=== PATIENT | female | born 1990 | race Caucasian/White ===

== ENCOUNTER 2018-06-26 03:15 | Observation (INO) ==
[2018-06-26 03:52] LABS: Bilirubin,Urine Negative (Negative); Blood,Urine Negative (Negative); Clarity,Urine Clear (Clear); Color,Urine Yellow (Yellow); Glucose,Urine (UA) Normal (Normal); Ketones,Urine Negative (Negative); Leukocyte Esterase,Urine Negative (Negative); Nitrite,Urine Negative (Negative); Protein,Urine Negative (Neg-Trace); Specific Gravity,Urine 1.009 (1.010-1.025); Urobilinogen,Urine Normal (Normal)
[2018-06-26 04:02] LABS: Amphetamine Screen,Urine Negative ng/mL (Cutoff=1000); Barbiturate Screen,Urine Negative ng/mL (Cutoff=200); Benzodiazepines Screen,Urine Negative ng/mL (Cutoff=200); Cannabinoid Screen,Urine Negative ng/mL (Cutoff = 50); Cocaine Screen,Urine Negative ng/mL (Cutoff= 300); Opiate Screen,Urine Negative ng/mL (Cutoff=300); Phencyclidine Screen,Urine Negative ng/mL (Cutoff=25)
[2018-06-26] MEDS ORDERED: Terconazole Vag SUPP 80 MG SUPP.VAG VG SCH (07:45)
--- NOTE | 2018-06-26 08:16 | OB/GYN Progress Note ---
Date of Encounter: 06/26/18 Time of Encounter: 07:00 - Assessment and Plan (1) 36 weeks gestation of Current Visit: Yes Status: Acute NST reactive Rx for terazo given to patient; first dose prior to discharge Discussed hypogylcemia prevention and what to do if it occurs again; patient states understanding Discharge home with labor precautions Follow up in office as scheduled and PRN (2) Vaginal yeast infection Current Visit: Yes Status: Acute (3) Uterine contractions during Current Visit: Yes Status: Acute (4) Hypoglycemia Current Visit: Yes Status: Acute (5) NST (non-stress test) reactive Current Visit: Yes Status: Acute Subjective - Subjective Principal diagnosis: hypoglycemia Interval history: Ms Stafford is a at 36 weeks and 2 days that presents to triage via ambulance for weakness and brain fog when not in prone position. She states positive movement and contractions that have worsened since her arrival. She was told her blood sugar in the ambulance was low and was given some PO glucose. She states that did help her and her symptoms resolved after eating the glucose. She denies headache, visual disturbances, epigastric pain, leaking of fluid, vaginal discharge, and vaginal bleeding. She is seen by Dr Sinclair for her p renatal care. Antepartum ROS: movement normal, contractions Objective - Exam FHR: auscultation normal, category 1 Auscultation: bilateral: normal Abdomen: Present: normal appearance, soft, gravid. Absent: tenderness Uterus: Present: normal. Absent: firm, tenderness Cervical dilation: 1-2 Cervix effacement: 50 station: -2 Comments: SVE - yeast discharge noted on glove. - Labs Labs: Abnormal lab results POC Glucose 102 mg/dL (70-99) H 06/26/18 04:19 Ur Specific [place] 1.009 (1.010-1.025) L 06/26/18 03:35
== END 2018-06-26 08:40 | disposition home or self-care (01) ==
LOC: 1NENULAB
PROVIDERS: ADMIT Advanced Practice Midwife; ATTEND Advanced Practice Midwife

== ENCOUNTER 2018-06-29 05:13 | Inpatient (IN) ==
[2018-06-28 23:11] LABS: Bilirubin,Urine Small (Negative); Blood,Urine Negative (Negative); Clarity,Urine Clear (Clear); Color,Urine Yellow (Yellow); Glucose,Urine (UA) Normal (Normal); Ketones,Urine 15 mg/dL (Negative); Leukocyte Esterase,Urine Small (Negative); Nitrite,Urine Negative (Negative); PH,Urine 6.5 pH Units (5.0-8.0); Protein,Urine Trace mg/dL (Neg-Trace); Specific Gravity,Urine 1.019 (1.010-1.025); Urobilinogen,Urine Normal (Normal)
[2018-06-28 23:12] LABS: Bacteria,Urine Moderate per hpf (None-Few); Hyaline Casts,Urine None Seen per lpf (None-Few); RBC,Urine 0-3 per hpf (0-3); Squamous Epithelial Cell,Urine Many per lpf (None-Few)
[2018-06-28 23:13] LABS: Basophils % 0.2 %; Lymphocytes % 4.1 %; Monocytes % 4.4 %; Platelet Count 271 K/mcL (140-400)
[2018-06-28 23:15] LABS: Basophils # 0.1 K/mcL (0.0-0.2); Hemoglobin 13.9 g/dL (11.5-15.4); Immature Granulocytes % 0.4 % (0-4); Mean Corpuscular HGB Conc 34.8 g/dL (31.6-35.5); Mean Corpuscular Hemoglobin 31.7 pg (28.0-33.3); Mean Corpuscular Volume 91.1 fL (83.0-100.0); Mean Platelet Volume 10.2 fL (9.4-12.4); Monocytes # 1.1 K/mcL (0.0-1.3); Neutrophils # 22.7 K/mcL (1.6-8.9); Red Blood Count 4.39 M/mcL (3.82-4.97); Red Cell Distribution Width 13.1 % (11.5-14.5); Segmented Neutrophils % 90.9 %
[2018-06-28 23:21] LABS: Amphetamine Screen,Urine Negative ng/mL (Cutoff=1000); Barbiturate Screen,Urine Negative ng/mL (Cutoff=200); Benzodiazepines Screen,Urine Negative ng/mL (Cutoff=200); Cannabinoid Screen,Urine Negative ng/mL (Cutoff = 50); Cocaine Screen,Urine Negative ng/mL (Cutoff= 300); Opiate Screen,Urine Negative ng/mL (Cutoff=300); Phencyclidine Screen,Urine Negative ng/mL (Cutoff=25)
[2018-06-28 23:31] LABS: Albumin 3.8 g/dL (3.5-5.7); Albumin/Globulin Ratio 1.2 (1.1-2.2); Bilirubin,Direct 0.2 mg/dL (0.0-0.2); Bilirubin,Indirect 0.5 mg/dL (0.0-1.2); Bilirubin,Total 0.7 mg/dL (0.3-1.0); Globulin 3.1 g/dL (2.4-3.5); Total Protein 6.9 g/dL (6.4-8.9)
[2018-06-28 23:32] LABS: Amylase 46 Units/L (29-103); Glucose 91 mg/dL (70-105); Lipase 9 Units/L (11-82)
[2018-06-28 23:36] LABS: Platelet Estimate Normal (Normal)
--- NOTE | 2018-06-29 01:10 | OB/GYN Progress Note ---
Date of Encounter: 06/29/18 Time of Encounter: 01:07 - Assessment and Plan (1) Nausea and vomiting during Current Visit: Yes Status: Acute The fluid bolus given along with IV Zofran. Patient reports relief of nausea and vomiting after medications. (2) 36 weeks gestation of Current Visit: No Status: Acute Admitted to observation for complaints of abdominal pain. Continue monitoring for labor evaluation. (3) NST (non-stress test) reactive Current Visit: No Status: Acute FHR 150 bpm, periods of moderate variability, +15 x 15 accelerations, no decelerations Extended periods of minimal variability. (4) Uterine contractions during Current Visit: No Status: Acute Contractions every 2-3 minutes Continue to monitor for labor (5) Leukocytosis Current Visit: No Status: Resolved Suspect white count is due to labor. Will continue to monitor temperature and signs of infection. Patient is afebrile upon admission to unit. Qualifiers: Leukocytosis type: unspecified Qualified Code(s): D72.829 - Elevated white blood cell count, unspecified Subjective - Subjective Principal diagnosis: Abdominal pain, nausea/vomiting/diarrhea Interval history: Patient reports this evening with complaint of severe abdominal pain that started around 1500 today, constant in nature and started approximately one hour after eating. Patient reports this pain is directly above the umbilicus and radiates to the right side of her abdomen. Slightly tender to palpation. Patient also does feel that she is having contractions but has also had nausea, vomiting and diarrhea today. She reports less movement but feels the baby is "balling up." She denies bleeding and fluid leakage. She is tearful upon arrival. She is 36w4d and a and receives care with Dr. Sinclair. Her SVE on 06/26/18 was 1-2 cm and on arrival today she was 3-4 cm and has progressed to 4-5 cm. CBC, LFT, Amylase and lipase all returned normal with the exception of WBC which was found to be 25. She is afebrile on arrival to L&D today. Antepartum ROS: movement normal, contractions, no loss of fluid, no vaginal bleeding Objective - Exam FHR: category 1 FHR comments: FHR 150 bpm, moderate variability with extended periods of minimal variability, +15x15 accels, no decels. Dr. Tavera made aware of periods of minimal variability and patient gestational age and current SVE. Auscultation: bilateral: normal Abdomen: Present: normal appearance, soft, gravid, tenderness Uterus: Present: normal Cervical dilation: 3-4 Cervix effacement: 70 station: -2 Comments: per RN exam - Labs Labs: Abnormal lab results WBC 25.0 K/mcL (4.3-11.1) H 06/28/18 22:25 Neutrophils # 22.7 K/mcL (1.6-8.9) H 06/28/18 22:25 Alkaline Phosphatase 187 Units/L (34-104) H 06/28/18 22:25 Lipase 9 Units/L (11-82) L 06/28/18 22:25 Urine Ketones 15 mg/dL (Negative) H 06/28/18 22:25 Urine Bilirubin Small (Negative) H 06/28/18 22:25 Ur Leukocyte Esterase Small (Negative) H 06/28/18 22:25 Urine Microscopic WBC 5-15 per hpf (0-3) H 06/28/18 22:25 Ur Squamous Epith Cells Many per lpf (None-Few) H 06/28/18 22:25 Urine Bacteria Moderate per hpf (None-Few) H 06/28/18 22:25 Ur Culture Indicated? NO. (NO) A 06/28/18 22:25
[2018-06-29 05:13] LABS: Basophils % 0.1 %; Hematocrit 37.1 % (35.3-44.9); Hemoglobin 12.7 g/dL (11.5-15.4); Immature Granulocytes % 0.6 % (0-4); Lymphocytes # 0.7 K/mcL (0.6-4.6); Lymphocytes % 4.8 %; Mean Corpuscular HGB Conc 34.2 g/dL (31.6-35.5); Mean Corpuscular Hemoglobin 31.7 pg (28.0-33.3); Mean Corpuscular Volume 92.5 fL (83.0-100.0); Mean Platelet Volume 10.3 fL (9.4-12.4); Monocytes # 0.8 K/mcL (0.0-1.3); Neutrophils # 13.6 K/mcL (1.6-8.9); Platelet Count 234 K/mcL (140-400); Red Blood Count 4.01 M/mcL (3.82-4.97); Segmented Neutrophils % 89.5 %
[~2018-06-29 05:13] MED LIST: Acetaminophen 325 MG TABLET PO ONE; Famotidine 20 MG/2 ML VIAL IVP PRN; Metoclopramide 10 MG/2 ML VIAL IVP PRN; Naloxone 0.4 MG/ML INJ IVP PRN; Ondansetron 4 MG/2 ML VIAL IVP PRN; Ondansetron 4 MG/2 ML VIAL ONE; Ringers Solution, Lactated 1,000 ML IVC SCH; Ringers Solution, Lactated 1,000 ML ONE
[2018-06-29] MEDS ORDERED: Bupivacaine-MPF 0.25% 10 ML VIAL EP ONE (05:16)
[2018-06-29] MEDS ORDERED: *HR* FentaNYL (PF) 100 MCG/2 ML VIAL EP ONE (05:16)
[2018-06-29] MEDS ORDERED: Lidocaine -MPF 1% 5 ML AMPUL ONE (05:19)
[2018-06-29] MEDS ORDERED: Epidural Premix (fent/bupiv) 110 ML EP SCH (05:30)
--- NOTE | 2018-06-29 05:54 | Anesthesia Evaluation PreOp ---
Date of Encounter: 06/29/18 Time of Encounter: 05:15 - Past History Planned Operation: PAXTON Cardiac History: Denies any Significant Hx Pulmonary History: Smoker (1ppd) [employer] History: Denies Any Significant HX Other Medical History: Denies Any Significant HX Anesthesia History: No Prior Anesthetic Complications (previous PAXTON x 2 & single shot spinal x 1--no complications; never had procedure requiring GA; denies family h/o GA complications) : Yes Alcohol Use: none Drug use: none Medications and Allergies Loratadine [Claritin] 10 mg PO DAILY 10/21/15 [History] Allergy/AdvReac Type Severity Reaction Status Date / Time chocolate flavor Allergy Hives Verified 07/26/17 13:39 orange Allergy Hives Verified 07/26/17 13:39 - Meds/Allergy Pre-op Review Medications Reviewed: Yes Allergies Reviewed: Yes Beta Blockers on Current Med List: No Anesthesia Results - Labs 06/29/18 04:55 06/28/18 22:25 Anesthesia Exam 134/87, HR 95, RR 24 O2 Sat Height 1.6 m Weight 74.843 kg NPO (# of Hours): solids > 8hrs Pain Scale: 10 Pain Scale Used: Numeric (1 - 10) - HEENT Pupil (Motor): Pupils equal Mallampati: II Teeth: Normal Oral Opening: Greater than 3 - [employer] LOC: Oriented [employer] Motor: Normal RUE, Normal LUE, Normal RLE, Normal LLE, Normal Face [employer] Sensory: Normal: RUE, LUE, RLE, LLE, Face - Cardiac Rhythm: Regular Murmur: None - Pulmonary Breath Sounds: bilateral Clear Respiratory Effort: Symmetrical Anesthesia Assess/Plan ASA Score: 2 Level of consciousness: Cooperative, Oriented, Restless Anesthetic Plan: Epidural Autologous Blood: No Monitoring Plan: Standard Monitors Recovery Plan: Other
[2018-06-29] MEDS ORDERED: *HR* Phenylephrine 10 MG/ML VIAL ONE (05:58)
--- NOTE | 2018-06-29 06:07 | Anesthesia Procedures ---
Date of Encounter: 06/29/18 Time of Encounter: 06:05 Procedures: Anesthesia - Epidural/Spinal Patient ID/Chart reviewed: Yes Patient examined: Yes OB Eval: Gestational age: 36 weeks 5 days OB Eval: : 4 OB Eval: Hx Para: 3 OB Eval: Dilated at (cm): 6 OB Eval: Contractions: Non-stressed pattern Consent Obtained: Yes Supplemental Oxygen: None/Room Air Site Prep: Aseptic Technique, Sterile prep and drape, Povidone-Iodine 1% Patient position: upright Local Anesthetic: Lidocaine 1% Amount of Local Anesthetic used: 3 Touhy Needle Gauge: 18 Touhy Needle Depth (cm): 5 Catheter Depth at Skin (cm): 10 Test Dose (1.5% Lido + Epi): Volume given (mls): 5 Test Dose Result: Negative Loading Dose: 0.25% Marcaine (mls): 5 Loading Dose: Fentanyl (mcg): 100 Loading Dose Administered: Thru Catheter Infusion Med: 0.125% Bupivacaine w/ 2 mcg/ml Fentanyl Infusion Rate (mls/hr): 14 (w/ demand bolus of 6mL q30min PRN) Catheter Secured in Place: Tegaderm, Tape Interspace Used: L3-L4 Loss of Resistance (ESTHELA): Yes Blood: No CSF: No Paresthesia: No Procedure: successful x 1st attempt; patient tolerated procedure well; VSS Vitals + FHT's: see Lay HERNANDEZ's electronic records for VS entry
--- NOTE | 2018-06-29 08:56 | OB Labor Progress Note ---
Date of Encounter: 06/29/18 Time of Encounter: 04:50 Labor Progress Note - Subjective Subjective: Patient is in a significant amount of pain with contractions and complains of returning intermittent nausea. - Cervix Cervix: 6 cm per RN exam - Heart Tones Heart Tones: 155 bpm still with periods of minimal variability - [place]: q1-3 minutes - Interventions Interventions: Admitted for labor at 36w5d with cervical change noted from 3.5 cm on arrival to 6 cm at last SVE - Plan Physician notified: Yes Physician notified details: Dr. Tavera given update on patient SVE and FHR tracing. OK to admit, patient may have epidural. Expectant management. Plan: Plan of care made in consultation with Dr. Tavera Patient may have epidural Expectant management AROM when appropriate with continued cervical change. Anticipate
--- NOTE | 2018-06-29 09:22 | OB/GYN History & Physical ---
Date of Encounter: 06/29/18 Time of Encounter: 09:17 Assessment and Plan (1) History of hemorrhage, currently in third trimester Current visit: Yes Status: Acute (2) Nausea and vomiting during Current visit: Yes Status: Acute (3) 36 weeks gestation of Current visit: No Status: Acute (4) labor in third trimester without delivery Current visit: Yes Status: Acute Admit for labor. Pt has an epidural in place. Continue to monitor. Anticipate . History of Present Illness Chief complaint: cramping, vomiting, diarrhea HPI: Ms. Stafford is a 27 year old female who presented last evening at 36w4d with complaint of severe abdominal pain that started around 1500, constant in nature and started approximately one hour after eating. Patient reports this pain is directly above the umbilicus and radiates to the right side of her abdomen. Slightly tender to palpation. Patient also does feel that she is having contractions but has also had nausea, vomiting and diarrhea today. She reports less movement but feels the baby is "balling up." She denies bleeding and fluid leakage. She is tearful upon arrival. She receives care with Dr. Sinclair. Her SVE on 06/26/18 was 1-2 cm and on arrival she was 3-4 cm and has progressed now to 6 cm. CBC, LFT, Amylase and lipase all returned normal with the exception of WBC which was found to be 25. Repeat WBC 15. She is afebrile. Due to severe cramping pain she was given an epidural. She is now comfortable. Blood type O negative Rubella immune Serologies negative GBS negative Past Med Surg Social Fam HX - Past Medical History Medical history: no medical history Psychiatric history: no psych history - Past Surgical History Surgical History: other Additional surgical history: D&C - Social History Smoking Status: Current every day smoker Packs per day: 1 Smokeless Tobacco Status: No Alcohol use: none Drug use: none - Family History Brother History Unknown: Yes Adopted: No Family Member Ethnicity: Non- Living Status: Still Living Hx Family Cardiac Disorders: Yes Hx Family Respiratory Disorders: No Hx Family Cancer: No Hx Family GI Disorders: No Hx Family Genitourinary Disorders: No Hx Family Endocrine Disorder: No Hx Family Musculoskeletal Disorders: No Hx Family Neuromuscular Disorders: No Hx Family Neurologic Disorders: No Hx Family HEENT Disorders: No Hx Family Autoimmune Disorders: No Hx Family Reproductive Disorders: No Hx Family Psychosocial Disorders: No Hx Family Medical Disorders: No Obstetrical History - Pregnancies : 4 Para: 3 Term: 3 Livin Medications and Allergies Loratadine [Claritin] 10 mg PO DAILY 10/21/15 [History] Allergy/AdvReac Type Severity Reaction Status Date / Time chocolate flavor Allergy Hives Verified 07/26/17 13:39 orange Allergy Hives Verified 07/26/17 13:39 Review of System OB All systems PM: reviewed and no additional remarkable complaints except as stated Exam - Constitutional Constitutional: well developed, well nourished, no acute distress - HEENT HEENT: Mucus Membranes Moist - Lungs Respiratory exam: CTAB - Cardiovascular Cardiovascular exam: RRR - Abdomen Abdomen: Present: gravid, non tender (pt has epidural) - Extremities Extremities exam: normal inspection - Vulva Vulva: bilateral: normal - Vagina Vagina: Present: normal moisture - Cervix Dilation: 6 Effacement: 80 Station: -3 - Anus/Rectum Anus/Rectum: Present: normal perianal skin Results Result Diagrams: 06/29/18 04:55 06/28/18 22:25 Abnormal lab results WBC 15.2 K/mcL (4.3-11.1) H 06/29/18 04:55 Neutrophils # 13.6 K/mcL (1.6-8.9) H 06/29/18 04:55 Alkaline Phosphatase 187 Units/L (34-104) H 06/28/18 22:25 Lipase 9 Units/L (11-82) L 06/28/18 22:25 Urine Ketones 15 mg/dL (Negative) H 06/28/18 22:25 Urine Bilirubin Small (Negative) H 06/28/18 22:25 Ur Leukocyte Esterase Small (Negative) H 06/28/18 22:25 Urine Microscopic WBC 5-15 per hpf (0-3) H 06/28/18 22:25 Ur Squamous Epith Cells Many per lpf (None-Few) H 06/28/18 22:25 Urine Bacteria Moderate per hpf (None-Few) H 06/28/18 22:25 Ur Culture Indicated? NO. (NO) A 06/28/18 22:25 All other labs normal. - VTE Reasons for not Prescribing Prophylaxis: Treatment not Indicated - Low risk for VTE
--- NOTE | 2018-06-29 14:34 | OB Labor Progress Note ---
Date of Encounter: 06/29/18 Time of Encounter: 14:29 Labor Progress Note - Subjective Subjective: Pt comfortable with epidural. She reports 2-3 episodes of diarrhea today. Nausea has improved. - Cervix Cervix: 6/80/-3 - Heart Tones Heart Tones: Category II, periods of minimal variability with tachycardia, occassional variable decelerations. - Alianza Alianza: 2-5 minutes - Plan Plan: Plan to continue monitoring at this time. Per discussion with Dr. Teague augementation of labor is not indicated at 36 weeks at this time. We discussed the FHR tracing as well.
--- NOTE | 2018-06-29 17:35 | OB Labor Progress Note ---
Date of Encounter: 06/29/18 Time of Encounter: 17:30 Labor Progress Note - Subjective Subjective: Patient is comfortable after the epidural - Cervix Cervix: 6.5/90/-3 cephalic - Heart Tones Heart Tones: Category 1, 145 baseline - [place]: infrequent contractions - Interventions Interventions: Due to the unstable lie with polyhydramnios the decision was made with discussion with Dr. Sinclair to augment her labor with AROM. Patient is in agreement. Epidural has been in place and she is comfortable. AROM with large amount of clear fluid.
[2018-06-29] MEDS ORDERED: Oxytocin 20 units/ LR 1000 mL 20 UNIT/1,000 ML BAG IVC SCH (18:45)
--- NOTE | 2018-06-30 05:07 | OB/GYN Procedure Note ---
Delivery - Delivery Date: 06/30/18 Provider: Leticia Lizarraga Intrapartum events: polyhydramnios Delivery induction: none Delivery augmentation: rupture of membranes, pitocin Delivery monitor: external FHT, external uterine Anesthesia: epidural Quantitated Blood Loss: 100 - Infant (s) A Infant Delivery Date: 06/30/18 Delivery Time: 04:28 Presentation: vertex Position: JL Route of delivery: Gender: Female Viability: Viable at 1 minute: 8 at 5 mins: 9 Shoulder Dystocia: not encountered Specimens collected: cord blood Placenta: spontaneous, uterine exploration (history of retained placenta with PP hemorrhage and infection, exploration per pt request to confirm no remainin products) Cord: 3 umbilical vessels - Repair Episiotomy: none Laceration Description: None - Complications Delivery complications: none Delivery comments: Pt presented at 36w4d with nausea/vomiting, diarrhea, and contractions. She progress in labor from 3cm to 5-6cm before receiving an epidural. She then continued to progress to 6-7cm before undergoing AROM and pitocin augmentation. She then progressed normally to for viable female "[place]" with apgars 8 at one minute and 9 at five minutes. After pulsations ceased the cord was clamped and cut and the placenta delivered spontaneous and intact. A thorough inspection of the placenta was found to be complete. Uterine exploration performed to ensure no remaining products. Small amount clots removed with exploration to the fundus. No lacerations noted. EBL 100ml. Mother and baby stable in kangaroo care following . - Disposition Mom disposition: stable in LDR disposition: stable in LDR
[2018-06-30] MEDS ORDERED: Oxytocin 20 units/ LR 1000 mL 20 UNIT/1,000 ML BAG IVC SCH (06:32)
[2018-06-30] MEDS ORDERED: Rho Immune Globulin 1,500 UNIT SYRINGE IM PRN (06:32)
[2018-06-30] MEDS ORDERED: Acetaminophen 325 MG TABLET PO PRN (06:32)
[2018-06-30] MEDS ORDERED: Measles/Mumps/Rubella Vacc 0.5 ML VIAL SQ PRN (06:32)
[2018-06-30] MEDS: Ibuprofen 600 MG TABLET PO PRN ×2 (07:21→16:03)
[2018-06-30] MEDS ORDERED: Prenatal Vit/FA 1 EACH TABLET PO SCH (09:00)
[2018-06-30] MEDS ORDERED: Methylergonovine 0.2 MG/ML AMPUL IM ONE (09:08)
[2018-07-01] MEDS: Ibuprofen 600 MG TABLET PO PRN ×2 (04:26→09:28)
[2018-07-01 08:02] VITALS: BP 111/78
[2018-07-01] MEDS ORDERED: Lanolin 7 G OINT...G. TP PRN (09:32)
--- NOTE | 2018-07-01 09:40 | Discharge Summary ---
Date of Encounter: 07/01/18 Time of Encounter: 09:38 - Discharge Diagnosis (1) Vaginal delivery Priority: Primary Status: Acute Comments: Continue routine care discharge home today (2) Breast feeding status of mother Priority: Secondary Status: Acute Comments: support prn - Discharge Medications Prescriptions: New Ibuprofen [Motrin] 600 mg PO Q6HR PRN #60 tablet PRN Reason: Cramping Lanolin [Lansinoh] 1 appl TP TID PRN oint...g. PRN Reason: Pain Discontinued Loratadine [Claritin] 10 mg PO DAILY Home Medications: Ibuprofen [Motrin] 600 mg PO Q6HR PRN #60 tablet 07/01/18 [Rx] Lanolin [Lansinoh] 1 appl TP TID PRN oint...g. 07/01/18 [Rx] Allergies/Adverse Reactions: Allergy/AdvReac Type Severity Reaction Status Date / Time chocolate flavor Allergy Hives Verified 07/26/17 13:39 orange Allergy Hives Verified 07/26/17 13:39 Data Procedures and tests throughout hospitalization: Laboratory Tests 06/28/18 06/28/18 06/28/18 22:25 22:25 22:25 WBC 25.0 H RBC 4.39 Hgb 13.9 Hct 40.0 MCV 91.1 MCH 31.7 MCHC 34.8 RDW 13.1 Plt Count 271 MPV 10.2 Immature Gran % 0.4 Seg Neutrophils % 90.9 Lymphocytes % 4.1 Monocytes % 4.4 Eosinophils % 0.0 Basophils % 0.2 Neutrophils # 22.7 H Lymphocytes # 1.0 Monocytes # 1.1 Eosinophils # 0.0 Basophils # 0.1 Platelet Estimate Normal Glucose 91 Total Bilirubin 0.7 Direct Bilirubin 0.2 Indirect Bilirubin 0.5 AST 13 ALT 10 Alkaline Phosphatase 187 H Serum Total Protein 6.9 Albumin 3.8 Globulin 3.1 Albumin/Globulin Ratio 1.2 Amylase 46 Lipase 9 L Urine Color Urine Clarity Urine pH Ur Specific [place] Urine Protein Urine Glucose (UA) Urine Ketones Urine Blood Urine Nitrite Urine Bilirubin Urine Urobilinogen Ur Leukocyte Esterase Urine Microscopic RBC Urine Microscopic WBC Ur Squamous Epith Cells Urine Bacteria Hyaline Casts Ur Culture Indicated? Urine Opiates Screen Ur Barbiturates Screen Ur Phencyclidine Scrn Ur Amphetamines Screen U Benzodiazepines Scrn Urine Cocaine Screen U Marijuana (THC) Screen Ur Drug Screen Interp Screen Baby's Blood Type Mother's Blood Type Rhogam Indicated Rhogam Req for Mother 06/28/18 06/28/18 06/29/18 22:25 22:39 04:55 WBC 15.2 H RBC 4.01 Hgb 12.7 Hct 37.1 MCV 92.5 MCH 31.7 MCHC 34.2 RDW 13.0 Plt Count 234 MPV 10.3 Immature Gran % 0.6 Seg Neutrophils % 89.5 Lymphocytes % 4.8 Monocytes % 5.0 Eosinophils % 0.0 Basophils % 0.1 Neutrophils # 13.6 H Lymphocytes # 0.7 Monocytes # 0.8 Eosinophils # 0.0 Basophils # 0.0 Platelet Estimate Glucose Total Bilirubin Direct Bilirubin Indirect Bilirubin AST ALT Alkaline Phosphatase Serum Total Protein Albumin Globulin Albumin/Globulin Ratio Amylase Lipase Urine Color Yellow Urine Clarity Clear Urine pH 6.5 Ur Specific [place] 1.019 Urine Protein Trace Urine Glucose (UA) Normal Urine Ketones 15 H Urine Blood Negative Urine Nitrite Negative Urine Bilirubin Small H Urine Urobilinogen Normal Ur Leukocyte Esterase Small H Urine Microscopic RBC 0-3 Urine Microscopic WBC 5-15 H Ur Squamous Epith Cells Many H Urine Bacteria Moderate H Hyaline Casts None Seen Ur Culture Indicated? NO. A Urine Opiates Screen Negative Ur Barbiturates Screen Negative Ur Phencyclidine Scrn Negative Ur Amphetamines Screen Negative U Benzodiazepines Scrn Negative Urine Cocaine Screen Negative U Marijuana (THC) Screen Negative Ur Drug Screen Interp See Below Screen Baby's Blood Type Mother's Blood Type Rhogam Indicated Rhogam Req for Mother 06/30/18 05:25 WBC RBC Hgb Hct MCV MCH MCHC RDW Plt Count MPV Immature Gran % Seg Neutrophils % Lymphocytes % Monocytes % Eosinophils % Basophils % Neutrophils # Lymphocytes # Monocytes # Eosinophils # Basophils # Platelet Estimate Glucose Total Bilirubin Direct Bilirubin Indirect Bilirubin AST ALT Alkaline Phosphatase Serum Total Protein Albumin Globulin Albumin/Globulin Ratio Amylase Lipase Urine Color Urine Clarity Urine pH Ur Specific [place] Urine Protein Urine Glucose (UA) Urine Ketones Urine Blood Urine Nitrite Urine Bilirubin Urine Urobilinogen Ur Leukocyte Esterase Urine Microscopic RBC Urine Microscopic WBC Ur Squamous Epith Cells Urine Bacteria Hyaline Casts Ur Culture Indicated? Urine Opiates Screen Ur Barbiturates Screen Ur Phencyclidine Scrn Ur Amphetamines Screen U Benzodiazepines Scrn Urine Cocaine Screen U Marijuana (THC) Screen Ur Drug Screen Interp Screen NEGATIVE Baby's Blood Type O RH POSITIVE Mother's Blood Type O RH NEGATIVE Rhogam Indicated YES Rhogam Req for Mother 1 Date of admission: 06/29/18 05:14 Primary care physician: PCP NONE Consults: 06/30/18 06:32 Consult to Mainframe Architect [CONS] Routine Comment: Vaginal delivery, consult needed Discharging clinician: Mary Cary Anticipated date of discharge: 07/01/18 - Patient Status Disposition: Home, Self-Care Condition: Good Functional capacity at discharge: independent ambulation - Discharge Instructions Follow Up With: NONE,PCP [Primary Care Provider] - - Diet and Activity Activity: increase activity as tolerated Diet: regular diet Hospital Course Reason for admission: active labor Delivery: Episiotomy: none Other procedures: none complications: none Discharge diagnosis: delivery baby: female (breast feeding) Time Attestation: Total time spent providing and/or coordinating discharge services: Time Spent: Less than 30 minutes Exam - Constitutional Vitals: Temp Pulse Resp BP Pulse Ox 97.6 F 61 14 111/78 99 07/01/18 08:01 07/01/18 08:01 07/01/18 08:01 07/01/18 08:01 07/01/18 08:01 General appearance IM: A&O X 3, pleasant, answers questions appropriately - Respiratory Respiratory exam: Present: CTAB - Cardiovascular Cardiovascular exam IM: Present: RRR, +S1, +S2 - GI/Abdominal GI/Abdominal exam IM: normal bowel sounds - Uterine Tone: Firm Uterus Position: 1 Finger Below Umbilicus, Midline - Extremities Exam Extremities exam IM: Present: full ROM, normal capillary refill, normal inspection - Neurological Exam Neurological exam: alert, oriented X3, reflexes normal
== END 2018-07-01 16:58 | disposition home or self-care (01) | DRG 560 ==
LOC: 1NENULAB → 1NENUOBS 06-30 09:23
PROVIDERS: ADMIT Registered Nurse; ATTEND Registered Nurse

== ENCOUNTER → 2021-03-23 16:00 | Observation (INO) ==
[2021-03-23 13:56] LABS: Protein/Creatinine Ratio,Urine 0.19 mg/mg (0.00-0.20)
[2021-03-23 13:57] LABS: Bilirubin,Urine Negative (Negative); Blood,Urine Negative (Negative); Clarity,Urine Clear (Clear); Color,Urine Yellow (Yellow); Glucose,Urine (UA) Normal (Normal); Ketones,Urine Trace mg/dL (Negative); Leukocyte Esterase,Urine Negative (Negative); Nitrite,Urine Negative (Negative); PH,Urine 6.5 pH Units (5.0-8.0); Protein,Urine Trace mg/dL (Neg-Trace); Specific Gravity,Urine 1.025 (1.010-1.025); Urobilinogen,Urine Normal (Normal)
[2021-03-23 14:01] LABS: Basophils % 0.3 %; Eosinophils % 0.3 %; Hemoglobin 13.1 g/dL (11.5-15.4); Immature Granulocytes % 0.7 % (0-4); Lymphocytes # 1.6 K/mcL (0.6-4.6); Lymphocytes % 13.4 %; Mean Corpuscular HGB Conc 34.5 g/dL (31.6-35.5); Mean Corpuscular Hemoglobin 31.8 pg (28.0-33.3); Mean Corpuscular Volume 92.2 fL (83.0-100.0); Mean Platelet Volume 10.2 fL (9.4-12.4); Monocytes # 0.4 K/mcL (0.0-1.3); Monocytes % 3.3 %; Neutrophils # 9.9 K/mcL (1.6-8.9); Platelet Count 246 K/mcL (140-400); Red Blood Count 4.12 M/mcL (3.82-4.97); Red Cell Distribution Width 13.2 % (11.5-14.5)
[2021-03-23 14:06] LABS: Alanine Aminotransferase 11 Units/L (7-52); Amylase 41 Units/L (29-103); Aspartate Amino Transferase 14 Units/L (13-39); BUN/Creatinine Ratio 17 (6-26); Blood Urea Nitrogen 10 mg/dL (6-20); Lactate Dehydrogenase 146 Units/L (140-271); Lipase 11 Units/L (11-82); Uric Acid 4.5 mg/dL (2.3-7.6); eGFR For African Americans > 60 (> 60); eGFR For Non-African Americans > 60 (> 60)
[~2021-03-23 16:00] MED LIST changes: -Acetaminophen 325 MG TABLET PO ONE; -Famotidine 20 MG/2 ML VIAL IVP PRN; -Metoclopramide 10 MG/2 ML VIAL IVP PRN; -Naloxone 0.4 MG/ML INJ IVP PRN; -Ondansetron 4 MG/2 ML VIAL IVP PRN; -Ondansetron 4 MG/2 ML VIAL ONE; +Ondansetron ODT 4 MG TAB.RAPDIS SL STA; -Ringers Solution, Lactated 1,000 ML IVC SCH; -Ringers Solution, Lactated 1,000 ML ONE
== END | disposition home or self-care (01) ==
LOC: 1NENULAB
PROVIDERS: ADMIT Advanced Practice Midwife; ATTEND Advanced Practice Midwife

== ENCOUNTER 2021-03-29 05:59 | Inpatient (IN) ==
[2021-03-29] MEDS ORDERED: Famotidine 20 MG/2 ML VIAL IVP PRN (07:18)
[2021-03-29] MEDS ORDERED: Ondansetron 4 MG/2 ML VIAL IVP PRN (07:18)
[2021-03-29] MEDS ORDERED: Azithromycin 500 MG in 0.9 % Sodium Chloride 250 ML IVPB PRN (07:18)
[2021-03-29] MEDS ORDERED: *HR* Nalbuphine 10 MG/ML AMPUL IV PRN (07:18)
[2021-03-29] MEDS ORDERED: Naloxone 0.4 MG/ML INJ IVP PRN (07:18)
[2021-03-29] MEDS ORDERED: Metoclopramide 10 MG/2 ML VIAL IVP PRN (07:18)
[2021-03-29] MEDS ORDERED: Oxytocin 20 units/ LR 1000 mL 20 UNIT/1,000 ML BAG IVC SCH ×2 (07:45→19:06)
[2021-03-29] MEDS: Ringers Solution, Lactated 1,000 ML IVC SCH ×2 (08:18→11:42)
[2021-03-29 09:01] LABS: Basophils % 0.4 %; Hemoglobin 13.1 g/dL (11.5-15.4); Immature Platelets 5.2 % (1.1-6.1)
[2021-03-29 09:07] LABS: Basophils # 0.1 K/mcL (0.0-0.2); Eosinophils # 0.1 K/mcL (0.0-0.6); Eosinophils % 0.8 %; Hematocrit 38.7 % (35.3-44.9); Immature Granulocytes % 0.7 % (0-4); Lymphocytes % 16.5 %; Mean Corpuscular HGB Conc 33.9 g/dL (31.6-35.5); Mean Corpuscular Hemoglobin 31.9 pg (28.0-33.3); Mean Corpuscular Volume 94.2 fL (83.0-100.0); Mean Platelet Volume 10.4 fL (9.4-12.4); Monocytes # 0.6 K/mcL (0.0-1.3); Monocytes % 5.4 %; Neutrophils # 9.1 K/mcL (1.6-8.9); Platelet Count 245 K/mcL (140-400); Red Blood Count 4.11 M/mcL (3.82-4.97); Red Cell Distribution Width 13.3 % (11.5-14.5); Segmented Neutrophils % 76.2 %; White Blood Count 11.9 K/mcL (4.3-11.1)
[2021-03-29 09:34] LABS: Influenza A PCR Negative (Negative); Influenza B PCR Negative (Negative); Resp. Syncytial Virus PCR Negative (Negative)
[2021-03-29 09:36] LABS: SARS-CoV-2 by PCR (In House) Negative (Negative)
[2021-03-29] MEDS ORDERED: EPHEDrine 50 MG/ML VIAL IVP PRN (11:03)
[2021-03-29] MEDS ORDERED: Epidural Premix (fent/bupiv) 110 ML EP SCH (11:15)
[2021-03-29 12:57] LABS: Amphetamine Screen,Urine Negative ng/mL (Cutoff=1000); Barbiturate Screen,Urine Negative ng/mL (Cutoff=200)
[2021-03-29 12:58] LABS: Benzodiazepines Screen,Urine Negative ng/mL (Cutoff=300); Cannabinoid Screen,Urine Negative ng/mL (Cutoff = 50); Cocaine Screen,Urine Negative ng/mL (Cutoff= 300); Opiate Screen,Urine Negative ng/mL (Cutoff=300); Phencyclidine Screen,Urine Negative ng/mL (Cutoff=25)
[2021-03-29] MEDS ORDERED: Ondansetron ODT 4 MG TAB.RAPDIS SL PRN (19:06)
[2021-03-29] MEDS ORDERED: Benzocaine/Menthol 56 GM AEROSOL SPRAY TP PRN (19:06)
[2021-03-29] MEDS ORDERED: Rho Immune Globulin 1,500 UNIT SYRINGE IM PRN (19:06)
[2021-03-29] MEDS ORDERED: Lanolin 7 G OINT...G. TP PRN (19:06)
[2021-03-29] MEDS: Ibuprofen 600 MG TABLET PO SCH (20:18)
[2021-03-29] MEDS: Acetaminophen 325 MG TABLET PO SCH (20:19)
[2021-03-30] MEDS: Acetaminophen 325 MG TABLET PO SCH ×2 (02:33→07:54)
[2021-03-30] MEDS: Ibuprofen 600 MG TABLET PO SCH ×2 (02:34→07:54)
[2021-03-30 07:48] VITALS: BP 101/60; TEMP 97.8; O2SAT 96
[2021-03-30] MEDS ORDERED: Prenatal Vit/FA 1 EACH TABLET PO SCH (09:00)
[2021-03-30 13:44] VITALS: PULSE 76
== END 2021-03-30 15:08 | disposition home or self-care (01) | DRG 807 ==
LOC: 1NENULAB 05:59 → 1NENUOBS 18:54
PROVIDERS: ADMIT Obstetrics & Gynecology; ATTEND Obstetrics & Gynecology